=== PATIENT | female | born 1940 | race Hispanic/Latino ===

== ENCOUNTER 2023-01-05 15:52 | Emergency (ER) | payer OTHER ==
--- NOTE | 2023-01-05 16:33 | RAD REPORT ---
EXAM DESCRIPTION: CT - Ct Stroke Brain Wo Cont - 01/05/2023 4:20 pm CLINICAL HISTORY: STROKE ALERT COMPARISON: No comparisons TECHNIQUE: Noncontrast head CT images ad were obtained without IV contrast. Multiplanar reformats we re generated and reviewed. All CT scans are performed using dose optimization technique as appropriate and may include automated exposure control or mA/KV adjustment according to patient size. FINDINGS: A right frontal parasagittal ellipsoid intraparenchymal hemorrhage, measuring 2.5 x 4.7 x 4.5 cm in greatest transverse cc, and AP dimensions. Adjacent cytotoxic edema anteriorly and inferior ly. Limited extension of subarachnoid hemorrhage along the parasagittal frontal and cingulate sulci. Suggestion of trace parafalcine hematoma more posteriorly measuring 2-3 millimeter in thickness. Focal mass effect upon the adjacent sulci, with leftward of the septum pellucidum approximately 4 mil limeter. Midline structures are otherwise unremarkable. Mild diffuse parenchymal volume loss. Mild periventricular and deep white matter hypodensities elsewh ere, nonspecific, but suggestive of chronic small vessel ischemic changes. Allen-white matter differentiation is otherwise preserved, without evidence of acute infarct. No abnor mal extra-axial fluid collections. Mastoid air cells and visualized portions of the paranasal sinuses are clear. No acute bony findings. IMPRESSION: Right frontal parasagittal multi compartment hemorrhage with a dominant right intraparen chymal hematoma measuring up to 31 mL in volume. Focal mass-effect upon the adjacent sulci but leftwa rd bowing of the septum pellucidum by approximately 4 millimeter. Given the possible frontal lobe, th erefore peripheral, origin of the hemorrhage, but underlying mass, or cerebral amyloid angiopathy alla uld be considered as possible etiologies. Chronic findings including mild diffuse parenchymal volume loss and presumed chronic small vessel isc hemic changes as above. The findings were communicated to Tim Allan on 01/05/2023 at 16: 23 hours.
[2023-01-05 16:34] LABS: Absolute Lymphocytes (CBC) 1.7 K/uL (0.7-4.9); Hematocrit 40.2 % (36.0-45.0); Lymphocytes % 18.5 % (15.3-44.8); MCV 91.9 fL (80-100); MPV 7.3 fL (7.6-11.3); Platelets 261 thou/uL (152-406); RBC Red Blood Cell Count 4.38 M/uL (3.86-4.86)
[2023-01-05 16:36] LABS: Protime INR 1.02
[2023-01-05] MEDS ORDERED: LEVETIRACETAM 500 MG/5 ML VIAL IV ONE (16:37)
[2023-01-05] MEDS ORDERED: FOLIC ACID 5 MG/ML VIAL ONE (16:38)
[2023-01-05] MEDS ORDERED: NA CHLORIDE 0.9% 1,000 ML ONE (16:38)
[2023-01-05 16:52] LABS: Albumin 3.6 g/dL (3.4-5.0); Bilirubin Direct 0.1 mg/dL (0-0.2); Bilirubin Indirect, Calculated 0.3 mg/dL (0.2-0.8); Bilirubin Total 0.4 mg/dL (0.2-1.0); Magnesium 2.7 mg/dL (1.6-2.4); Potassium 3.5 mEq/L (3.5-5.1); Protein, Total 7.7 g/dL (6.4-8.2)
--- NOTE | 2023-01-05 17:03 | ER ---
Nurse's Notes [facility] Name: Yenni Lima Age: 82 yrs Sex: Female : 1940 Arrival Date: 01/05/2023 Time: 15:52 Bed 20 Private MD: Diagnosis: Aphasia;Essential (primary) hypertension;Nontraumatic intracerebral hemorrhage in hemisphere, cortical-left frontal Presentation: 01/05 15:56 Method Of Arrival: Wheelchair aa5 15:56 Chief complaint: Pt's granddaughter states "she just flew in from [place], [place] and I aa5 picked her up at 1:55pm and she was very confused and has not said a word to me". Left sided weakness noted, left facial droop noted, pt currently non-verbal, pt able to follow commands. Last known normal was today at 1030. Coronavirus screen: At this time, the client does not indicate any symptoms associated with coronavirus-19. Ebola Screen: Patient denies travel to an Ebola-affected area in the 21 days before illness onset. An acute neurological deficit is present. Pre-hospital glucose is not applicable to this patient. Initial Sepsis Screen: Does the patient meet any 2 criteria? No. Patient's initial sepsis screen is negative. Does the patient have a suspected source of infection? No. Patient's initial sepsis screen is negative. Risk Assessment: Do you want to hurt yourself or someone else? Unable to obtain. Onset of symptoms was January 05, 2023. 15:56 Acuity: DESHAWN 2 aa5 Triage Assessment: 17:19 The onset of the patients symptoms was January 05, 2023 at 10:30. kc6 Stroke Activation: Symtpom onset >3 hours and < 6 hours Physician: Stroke Attending; Name: ; Notified At: ; Arrived At: Physician: Chief Stroke Resident; Name: ; Notified At: ; Arrived At: Physician: Stroke Resident; Name: ; Notified At: ; Arrived At: Physician: ED Attending; Name: ; Notified At: ; Arrived At: Physician: ED Resident; Name: ; Notified At: ; Arrived At: Historical: - Allergies: 15:56 No Known Allergies; aa5 - PMHx: 15:56 Hypertensive disorder; Pt's family is poor historian; aa5 - Immunization history:: Adult Immunizations unknown. - Social history:: Smoking status: unknown. Screenin:09 [facility] [place] ED Fall Risk Assessment (Adult) History of falling in the last 3 months, kc6 including since admission No falls in past 3 months (0 pts) Confusion or Disorientation Yes (5 pts) Intoxicated or Sedated No (0 pts) Impaired Gait Yes (1 pt) Mobility Assist Device Used No (0 pt) Altered Elimination No (0 pt) Score/Fall Risk Level 3 or more points = High Risk. Abuse screen: Denies threats or abuse. Denies injuries from another. Nutritional screening: No deficits noted. Tuberculosis screening: No symptoms or risk factors identified. Assessment: 16:09 VAN Scoring: Arm Drift: Minor drift Visual Disturbance: No visual disturbance noted. kc6 Aphasia: Expressive aphasia noted. Provider notified of +VAN scoring. Neglect: No neglect noted. Linh Swallow Protocol Brief Cognitive Screen What is your name? Abnormal: unable to express words. Where are you right now? Abnormal: unable to express words. What year is it? Abnormal: unable to express words. Result: FAIL. TNKase (Tenecteplase) Screening: Contraindications: Active peripheral bleeding/history of intracranial bleeding: Yes. General: Appears in no apparent distress. comfortable, Behavior is calm, cooperative, appropriate for age. Pain: Unable to use pain scale. Patient is disoriented. Does not appear to understand pain scale. FLACC scale score is 0 out of 10. Neuro: Level of Consciousness is awake, alert, obeys commands, Oriented to none Center Rep are weak on left Moves all extremities. Weakness in left hand(s) arm(s) leg(s) foot/feet Gait is unsteady, Speech is normal, Facial droop on left, Pupils are PERRLA, Intact. Cardiovascular: Heart tones S1 S2 present Capillary refill < 3 seconds Rhythm is sinus rhythm. Respiratory: Airway is patent Trachea midline Respiratory effort is even, unlabored, Respiratory pattern is regular, symmetrical. GI: No signs and/or symptoms were reported involving the gastrointestinal system. : No signs and/or symptoms were reported regarding the genitourinary system. EENT: No signs and/or symptoms were reported regarding the EENT system. Derm: No signs and/or symptoms reported regarding the dermatologic system. Skin is intact, is healthy with good turgor, Skin is pink, warm \\T\\ dry. Musculoskeletal: No signs and/or symptoms reported regarding the musculoskeletal system. Circulation, motion, and sensation intact. Capillary refill < 3 seconds, Range of motion: intact in all extremities. 16:32 Reassessment: No changes from previously documented assessment. ll1 17:09 Reassessment: Patient appears in no apparent distress at this time. No changes from kc6 previously documented assessment. Patient and/or family updated on plan of care and expected duration. Pain level reassessed. Vital Signs: 15:56 BP 126 / 74; Pulse 70; Resp 16 S; Temp 98(TE); Pulse Ox 98% on R/A; aa5 16:45 BP 137 / 58; Pulse 71; Resp 20 S; Pulse Ox 99% on R/A; kc6 17:17 BP 148 / 66; Pulse 63; Resp 18 S; Pulse Ox 99% on R/A; kc6 Rachell Coma Score: 16:56 Eye Response: spontaneous(4). Motor Response: obeys commands(6). Verbal Response: dm confused(4). Total: 14. NIH Stroke Scale Scores: 16:09 NIHSS Score: 8 kc6 16:56 NIHSS Score: 4 dm ED Course: 15:53 Patient arrived in ED. im 15:58 Tim Allan MD is Attending Physician. dm 15:58 Arm band placed on Patient placed in an exam room, on a stretcher. ll1 16:09 Patient has correct armband on for positive identification. Placed in gown. Bed in low kc6 position. Call light in reach. Side rails up X2. Adult w/ patient. Seizure precautions initiated. Client placed on continuous cardiac and pulse oximetry monitoring. NIBP monitoring applied. child monitor on. 16:12 Triage completed. aa5 16:19 Stephanie Moyer, RYLIE is Primary Nurse. kc6 16:21 CT Stroke Brain w/o Contrast In Process Unspecified. EDMS 16:26 Inserted saline lock: 18 gauge in left antecubital area, using aseptic technique. Blood kc6 collected. Patient maintains SpO2 saturation greater than 95% on room air. 16:45 XRAY Chest (1 view) In Process Unspecified. EDMS 17:09 Urinalysis w/ reflexes Sent. kc6 17:19 No provider procedures requiring assistance completed. Patient transferred, IV remains kc6 in place. Administered Medications: 16:31 Drug: foLIC Acid IVPB 1 mg IVPB once Route: IVPB; Site: left antecubital; ll1 17:18 Follow up: Response: No adverse reaction; IV Status: Infusion continued upon transfer; kc6 IV Intake: 1000ml 16:31 Drug: NS 0.9% IV 1000 ml IV at 1 bolus Per protocol; 1000 mL bolus Route: IV; Rate: 1 ll1 bolus; Site: left antecubital; 17:19 Follow up: Response: No adverse reaction; IV Status: Infusion continued upon transfer; kc6 IV Intake: 1000ml 16:31 Drug: Keppra IV 1000 mg IV at per protocol once Route: IV; Rate: per protocol; Site: ll1 left antecubital; 17:18 Follow up: Response: No adverse reaction; IV Status: Infusion continued upon transfer; kc6 IV Intake: 1000ml 17:05 Drug: Decadron - Dexamethasone IVP 10 mg IVP once Route: IVP; Site: left antecubital; 6 17:19 Follow up: Response: No adverse reaction kc6 Medication: 17:19 VIS not applicable for this client. kc6 Point of Care Testing: Blood Glucose: 16:08 Blood Glucose: 109 mg/dL; kc6 Ranges: Intake: 17:18 IV: 1000ml; Total: 1000ml. kc6 17:18 IV: 1000ml; Total: 2000ml. kc6 17:19 IV: 1000ml; Total: 3000ml. kc6 Outcome: 17:03 ER care complete, transfer ordered by . [facility] 17:19 Transferred by helicopter to [facility], Transfer form completed. kc6 Note: report called to RYLIE Perez. pt transferred via [employer] 17:19 Condition: stable 17:19 Instructed on the need for transfer, 17:20 Patient left the ED. kc6 NIH Stroke Scale - NIH Stroke Score Date: 01/05/2023 Time: 16:09 Total Score = 8 10. Dysarthria (speech clarity - read or repeat words) - 0(Normal) 11. Extinction and Inattention (visual/tactile/auditory/spatial/personal) - 0(No abnormality) 1a. Level of Consciousness (LOC) - 0(Alert) 1b. Level of Consciousness (LOC) (Month \\T\\ Age) - 2(Neither) 1c. LOC Commands (Open \\T\\ Closes Eyes/Echo Technician) - 0(Both) 2. Best Gaze (Lateral Gaze Paresis) - 0(Normal) 3. Visual Field Loss - 0(No visual loss) 4. Facial Palsy - 1(Minor Paralysis) 5a. Left Arm: Motor (10-second hold) - 1(Drift) 5b. Right Arm: Motor (10-second hold) - 0(No drift) 6a. Left Leg: Motor (5-second hold - always test supine) - 1(Drift) 6b. Right Leg: Motor (5-second hold - always test supine) - 0(No drift) 7. Limb Ataxia (finger/nose \\T\\ heel/bo - test with eyes open) - 1(Present in one limb) 8. Sensory Loss (pinprick arms/legs/face) - 0(Normal) 9. Best Language: Aphasia (description/naming/reading) - 2(Severe aphasia) Initials: kc6 NIH Stroke Scale - NIH Stroke Score Date: 01/05/2023 Time: 16:56 Total Score = 4 10. Dysarthria (speech clarity - read or repeat words) - 1(Mild to Moderate) 11. Extinction and Inattention (visual/tactile/auditory/spatial/personal) - 0(No abnormality) 1a. Level of Consciousness (LOC) - 0(Alert) 1b. Level of Consciousness (LOC) (Month \\T\\ Age) - 0(Both) 1c. LOC Commands (Open \\T\\ Closes Eyes/Echo Technician) - 0(Both) 2. Best Gaze (Lateral Gaze Paresis) - 0(Normal) 3. Visual Field Loss - 0(No visual loss) 4. Facial Palsy - 1(Minor Paralysis) 5a. Left Arm: Motor (10-second hold) - 0(No drift) 5b. Right Arm: Motor (10-second hold) - 0(No drift) 6a. Left Leg: Motor (5-second hold - always test supine) - 0(No drift) 6b. Right Leg: Motor (5-second hold - always test supine) - 0(No drift) 7. Limb Ataxia (finger/nose \\T\\ heel/bo - test with eyes open) - 0(Absent) 8. Sensory Loss (pinprick arms/legs/face) - 0(Normal) 9. Best Language: Aphasia (description/naming/reading) - 2(Severe aphasia) Initials: dm Signatures: Dispatcher [employer] Tim Tavares MD MD cha Calderon, Audri, RN RN aa5 Jason Oden RN RN ll1 Stephanie Moyer RN RN kc6 Susy Del Rio
--- NOTE | 2023-01-05 17:03 | EDPHYS ---
Physician Documentation [facility] Name: Yenni Lima Age: 82 yrs Sex: Female : 1940 Arrival Date: 01/05/2023 Time: 15:52 Bed 20 Private MD: ED Physician Tim Allan HPI: 01/05 16:53 This 82 yrs old Female presents to ER via Wheelchair with complaints of Facial dm Droop. 16:53 The patient presents to the emergency department with weakness of the. dm Historical: - Allergies: 15:56 No Known Allergies; aa5 - PMHx: 15:56 Hypertensive disorder; Pt's family is poor historian; aa5 - Immunization history:: Adult Immunizations unknown. - Social history:: Smoking status: unknown. ROS: 16:55 Constitutional: Negative for fever, chills, and weight loss, Eyes: Negative for injury, dm pain, redness, and discharge, ENT: Negative for injury, pain, and discharge, Neck: Negative for injury, pain, and swelling, Cardiovascular: Negative for chest pain, palpitations, and edema, Respiratory: Negative for shortness of breath, cough, wheezing, and pleuritic chest pain, Abdomen/GI: Negative for abdominal pain, nausea, vomiting, diarrhea, and constipation, Back: Negative for injury and pain, : Negative for injury, bleeding, discharge, and swelling, MS/Extremity: Negative for injury and deformity, Skin: Negative for injury, rash, and discoloration, Psych: Negative for depression, anxiety, suicide ideation, homicidal ideation, and hallucinations, Allergy/Immunology: Negative for hives, rash, and allergies, Endocrine: Negative for neck swelling, polydipsia, polyuria, polyphagia, and marked weight changes, Hematologic/Lymphatic: Negative for swollen nodes, abnormal bleeding, and unusual bruising, 16:55 Neuro: Positive for Exam: 16:56 Constitutional: This is a well developed, well nourished patient who is awake, alert, dm and in no acute distress. Head/Face: Normocephalic, atraumatic. Eyes: Pupils equal round and reactive to light, extra-ocular motions intact. Lids and lashes normal. Conjunctiva and sclera are non-icteric and not injected. Cornea within normal limits. Periorbital areas with no swelling, redness, or edema. ENT: Nares patent. No nasal discharge, no septal abnormalities noted. Tympanic membranes are normal and external auditory canals are clear. Oropharynx with no redness, swelling, or masses, exudates, or evidence of obstruction, uvula midline. Mucous membranes moist. Neck: Trachea midline, no thyromegaly or masses palpated, and no cervical lymphadenopathy. Supple, full range of motion without nuchal rigidity, or vertebral point tenderness. No Meningismus. Chest/axilla: Normal chest wall appearance and motion. Nontender with no deformity. No lesions are appreciated. Cardiovascular: Regular rate and rhythm with a normal S1 and S2. No gallops, murmurs, or rubs. Normal PMI, no JVD. No pulse deficits. Respiratory: Lungs have equal breath sounds bilaterally, clear to auscultation and percussion. No rales, rhonchi or wheezes noted. No increased work of breathing, no retractions or nasal flaring. Abdomen/GI: Soft, non-tender, with normal bowel sounds. No distension or tympany. No guarding or rebound. No evidence of tenderness throughout. Back: No spinal tenderness. No costovertebral tenderness. Full range of motion. Female : Normal external genitalia. Skin: Warm, dry with normal turgor. Normal color with no rashes, no lesions, and no evidence of cellulitis. MS/ Extremity: Pulses equal, no cyanosis. Neurovascular intact. Full, normal range of motion. Psych: Awake, alert, with orientation to person, place and time. Behavior, mood, and affect are within normal limits. 16:56 Neuro: Orientation: to person, place, time, situation, Mentation: is normal, appropriate for stated age, no acute changes, Memory: unable to test, Cranial nerves: facial droop noted on left, Cerebellar function: is grossly normal, Motor: is normal, Sensation: is normal, Gait: not tested. seizure activity, is not displayed by the patient, 17:07 ECG was reviewed by the Attending Physician. dm Vital Signs: 15:56 BP 126 / 74; Pulse 70; Resp 16 S; Temp 98(TE); Pulse Ox 98% on R/A; aa5 16:45 BP 137 / 58; Pulse 71; Resp 20 S; Pulse Ox 99% on R/A; kc6 17:17 BP 148 / 66; Pulse 63; Resp 18 S; Pulse Ox 99% on R/A; kc6 NIH Stroke Scale Scores: 16:09 NIHSS Score: 8 kc6 16:56 NIHSS Score: 4 [facility] Coma Score: 16:56 Eye Response: spontaneous(4). Motor Response: obeys commands(6). Verbal Response: dm confused(4). Total: 14. MDM: 15:58 Patient medically screened. [facility] 16:56 Data reviewed: vital signs, nurses notes, lab test result(s), EKG, radiologic studies, dm CT scan, plain films. Consideration of Admission/Observation Escalation of care including admission/observation considered. Management of patient was discussed with the following: Patient Access Specialist: dr fermin, neuro. I considered the following discharge prescriptions or medication management in the emergency department Medications were administered in the Emergency Department. See MAR. Independent interpretation of the following test(s) in the Emergency Department EKG: See my EKG interpretation above. Test considered but Not performed: CT: cta head and neck. Historians other than the Patient: Family Member: daughter and grandaughter. Care significantly affected by the following chronic conditions: Hypertension. Counseling: I had a detailed discussion with the patient and/or guardian regarding the historical points, exam findings, and any diagnostic results supporting the discharge/admit diagnosis, the presence of at least one elevated blood pressure reading (>120/80) during this emergency department visit, radiology results, the need to transfer to another facility, for higher level of care, [facility] does not immediately have the required specialist. 01/05 16:04 Order name: Basic Metabolic Panel; Complete Time: 17:06 [facility] 01/05 16:04 Order name: CBC with Diff; Complete Time: 16:45 [facility] 01/05 16:04 Order name: LFT's; Complete Time: 17:06 [facility] 01/05 16:04 Order name: Magnesium; Complete Time: 17:06 [facility] 01/05 16:04 Order name: NT PRO-BNP; Complete Time: 17:06 [facility] 01/05 16:04 Order name: PT-INR; Complete Time: 16:45 [facility] 01/05 16:04 Order name: Troponin HS; Complete Time: 17:06 [facility] 01/05 16:04 Order name: Urinalysis w/ reflexes [facility] 01/05 16:20 Order name: Glucose, Ancillary Testing; Complete Time: 16:45 EDMS 01/05 16:27 Order name: Type And Screen [facility] 01/05 16:27 Order name: Ptt, Activated; Complete Time: 17:06 [facility] 01/05 16:04 Order name: XRAY Chest (1 view) [facility] 01/05 16:04 Order name: CT Stroke Brain w/o Contrast; Complete Time: 16:46 [facility] 01/05 16:04 Order name: EKG; Complete Time: 16:05 [facility] 01/05 16:04 Order name: Cardiac monitoring; Complete Time: 16:28 [facility] 01/05 16:04 Order name: EKG - Nurse/Tech; Complete Time: 16:28 [facility] 01/05 16:04 Order name: IV Saline Lock; Complete Time: 16:28 [facility] 01/05 16:04 Order name: Labs collected and sent; Complete Time: 16:28 [facility] 01/05 16:04 Order name: O2 Per Protocol; Complete Time: 16:19 [facility] 01/05 16:04 Order name: O2 Sat Monitoring; Complete Time: 16:19 [facility] 01/05 16:21 Order name: Seizure Precautions; Complete Time: 16:28 [facility] 01/05 16:21 Order name: Blood Pressure Recheck; Complete Time: 16:28 [facility] EC:07 Rate is 68 beats/min. Rhythm is regular. QRS Champion is Normal. PA interval is normal. QRS dm interval is normal. QT interval is normal. No Q waves. T waves are Normal. No ST changes noted. Clinical impression: NSR w/ Non-specific ST/T Changes and No evidence of ischemia. Interpreted by me. Reviewed by me. Administered Medications: 16:31 Drug: foLIC Acid IVPB 1 mg IVPB once Route: IVPB; Site: left antecubital; 1 17:18 Follow up: Response: No adverse reaction; IV Status: Infusion continued upon transfer; kc6 IV Intake: 1000ml 16:31 Drug: NS 0.9% IV 1000 ml IV at 1 bolus Per protocol; 1000 mL bolus Route: IV; Rate: 1 ll1 bolus; Site: left antecubital; 17:19 Follow up: Response: No adverse reaction; IV Status: Infusion continued upon transfer; kc6 IV Intake: 1000ml 16:31 Drug: Keppra IV 1000 mg IV at per protocol once Route: IV; Rate: per protocol; Site: [facility] left antecubital; 17:18 Follow up: Response: No adverse reaction; IV Status: Infusion continued upon transfer; kc6 IV Intake: 1000ml 17:05 Drug: Decadron - Dexamethasone IVP 10 mg IVP once Route: IVP; Site: left antecubital; kc6 17:19 Follow up: Response: No adverse reaction kc6 Point of Care Testing: Blood Glucose: 16:08 Blood Glucose: 109 mg/dL; kc6 Ranges: Critical Glucose Levels:Adult <50 mg/dl or >400 mg/dl <40 mg/dl or >180 mg/dl Disposition Summary: 01/05/23 17:03 Transfer Ordered Notes: Transfer Location: [facility] dm Reason: Higher level of care dm Condition: Serious dm Problem: new dm Symptoms: are unchanged dm Accepting Physician: arely fermin, neuro icu(01/05/23 17:20) kc6 Diagnosis - Aphasia dm - Essential (primary) hypertension dm - Nontraumatic intracerebral hemorrhage in hemisphere, cortical - left frontal dm Forms: - Medication Reconciliation Form dm - SBAR form dm NIH Stroke Scale - NIH Stroke Score Date: 01/05/2023 Time: 16:09 Total Score = 8 10. Dysarthria (speech clarity - read or repeat words) - 0(Normal) 11. Extinction and Inattention (visual/tactile/auditory/spatial/personal) - 0(No abnormality) 1a. Level of Consciousness (LOC) - 0(Alert) 1b. Level of Consciousness (LOC) (Month \T\ Age) - 2(Neither) 1c. LOC Commands (Open \T\ Closes Eyes/Leather Belt Loop Cutter) - 0(Both) 2. Best Gaze (Lateral Gaze Paresis) - 0(Normal) 3. Visual Field Loss - 0(No visual loss) 4. Facial Palsy - 1(Minor Paralysis) 5a. Left Arm: Motor (10-second hold) - 1(Drift) 5b. Right Arm: Motor (10-second hold) - 0(No drift) 6a. Left Leg: Motor (5-second hold - always test supine) - 1(Drift) 6b. Right Leg: Motor (5-second hold - always test supine) - 0(No drift) 7. Limb Ataxia (finger/nose \T\ heel/bo - test with eyes open) - 1(Present in one limb) 8. Sensory Loss (pinprick arms/legs/face) - 0(Normal) 9. Best Language: Aphasia (description/naming/reading) - 2(Severe aphasia) Initials: 6 NIH Stroke Scale - NIH Stroke Score Date: 01/05/2023 Time: 16:56 Total Score = 4 10. Dysarthria (speech clarity - read or repeat words) - 1(Mild to Moderate) 11. Extinction and Inattention (visual/tactile/auditory/spatial/personal) - 0(No abnormality) 1a. Level of Consciousness (LOC) - 0(Alert) 1b. Level of Consciousness (LOC) (Month \T\ Age) - 0(Both) 1c. LOC Commands (Open \T\ Closes Eyes/Leather Belt Loop Cutter) - 0(Both) 2. Best Gaze (Lateral Gaze Paresis) - 0(Normal) 3. Visual Field Loss - 0(No visual loss) 4. Facial Palsy - 1(Minor Paralysis) 5a. Left Arm: Motor (10-second hold) - 0(No drift) 5b. Right Arm: Motor (10-second hold) - 0(No drift) 6a. Left Leg: Motor (5-second hold - always test supine) - 0(No drift) 6b. Right Leg: Motor (5-second hold - always test supine) - 0(No drift) 7. Limb Ataxia (finger/nose \T\ heel/bo - test with eyes open) - 0(Absent) 8. Sensory Loss (pinprick arms/legs/face) - 0(Normal) 9. Best Language: Aphasia (description/naming/reading) - 2(Severe aphasia) Initials: [facility] Signatures: Dispatcher [employer] EDMS Tim Allan MD MD cha Calderon, Audri, RN RN aa5 Jason Oden, RN RN ll1 Stephanie Moyer RN RN kc6 Corrections: (The following items were deleted from the chart) 16:38 16:05 MR STROKE PROTOCOL+MRI.RAD.BRZ ordered. EDMS EDMS 16:56 16:05 Head Angio+CT.RAD.BRZ ordered. EDMS EDMS 17:09 16:05 Neck Angio+CT.RAD.BRZ ordered. EDMS EDMS 17:20 17:[address] fermin, neuro [place] [place] [id number]
[2023-01-05] MEDS ORDERED: dexAMETHasone 10 MG/ML VIAL ONE (17:08)
[2023-01-05 17:14] LABS: Specific Gravity 1.007 (1.005-1.030); Urine Bilirubin NEGATIVE (Negative); Urine Blood Negative (Negative); Urine Clarity Clear (Clear); Urine Color Light-Yellow (Yellow); Urine Glucose NEGATIVE (Negative); Urine Protein NEGATIVE (Negative); Urine Urobilinogen Normal (Normal); Urine pH 6.5 (5.0-7.0)
[2023-01-05 17:24] VITALS: TEMP 98
[2023-01-05 17:25] VITALS: O2SAT 99
[2023-01-05 17:27] VITALS: BP 148/66
--- NOTE | 2023-01-05 17:50 | RAD REPORT ---
EXAM DESCRIPTION: Alejandro Single View01/05/2023 4:43 pm CLINICAL HISTORY: COUGH COMPARISON: No comparisons TECHNIQUE: Portable AP view of the chest. FINDINGS: The right lung is clear. Left retrocardiac streaky airspace opacities, could reflect atele ctasis or airspace disease. No pneumothorax or effusion. The cardiomediastinal contours are unremark able. IMPRESSION: Left retrocardiac streaky opacities, could reflect atelectasis or airspace disease.
--- NOTE | 2023-01-06 15:14 | EKG ---
Test Date: 2023-01-05 Test Time: 16:30:06 Privacy Specialist: NEVIN MEASUREMENT RESULTS: Intervals: Rate: 68 [place]: QRSD: 76 QT: 400 QTc: 425 [place]: P: [place]: QRS: 75 T: 60 INTERPRETIVE STATEMENTS: Accelerated Junctional rhythm Nonspecific ST and T wave abnormality Abnormal ECG No previous ECG available for comparison Electronically Signed On 01-06-23 15:10:57 COURT MANAGER by Henry Walden
== END 2023-01-05 17:20 | disposition short-term general hospital (02) ==
LOC: ER 15:52
DX: I61.1 Nontraumatic intracerebral hemorrhage in hemisphere, cortical (principal); I10 Essential (primary) hypertension; R29.708 NIHSS score 8
CPT/HCPCS: 96365; 96368; 93005; 85025; 80048; 36415; 86900; 83735; 86850; 85610; 86901; 82947; 80076; 85730; 81003; 84484; 83880; 70450; 71045; 96375; 99285; J1953; J1100; J7030

== ENCOUNTER 2024-04-19 10:27 | Emergency (ER) | payer OTHER ==
[2024-04-19 11:10] LABS: Absolute Basophils 0.1 K/uL (0-0.5); Absolute Eosinophils 0.2 K/uL (0-0.5); Absolute Lymphocytes (CBC) 1.1 K/uL (0.7-4.9); Absolute Monocytes 0.8 K/uL (0.1-1.3); Basophils % 1.2 % (0-1.3); Eosinophils % 3.3 % (0-4.4); Hemoglobin 13.3 g/dL (12.0-15.0); Lymphocytes % 18.4 % (15.3-44.8); MCH 31.9 pg (27.0-35.0); MCHC 34.1 g/dL (32.0-36.0); MCV 93.7 fL (80-100); MPV 7.8 fL (7.6-11.3); Monocytes % 12.6 % (3.3-12.3); Neutrophils % 64.5 % (41.7-73.7); Platelets 248 thou/uL (152-406); RBC Red Blood Cell Count 4.16 M/uL (3.86-4.86); Red Cell Distribution Width 13.4 % (12.1-15.2)
[2024-04-19 11:23] LABS: Influenza A Ag Negative; Influenza B Ag Negative; SARS-CoV-2 Antigen Rapid Res Negative (Negative)
[2024-04-19 12:06] LABS: Anion Gap 5.8 mEq/L (5.0-15.0); Potassium 3.8 mEq/L (3.5-5.1); Troponin High Sensitivity 6.2 pg/mL (<58.9)
--- NOTE | 2024-04-19 12:20 | RAD REPORT ---
EXAMINATION: ONE VIEW CHEST XR CLINICAL INDICATION: Female, 83 years old.,Cough;Chest pain TECHNIQUE: Frontal chest projection is submitted. Examination is limited by patient positioning and t echnique. COMPARISON: 01/05/2023 FINDINGS: The lungs are well inflated and clear. No pneumothorax or sizable effusion. The heart is normal in s ize. Mediastinal contours are unremarkable. IMPRESSION: No acute intrathoracic abnormalities.
--- NOTE | 2024-04-19 13:05 | EDPHYS ---
Physician Documentation [facility] Name: Yenni Lima Age: 83 yrs Sex: Female : 1940 Arrival Date: 04/19/2024 Time: 10:27 Bed 2 Private MD: ED Physician Hiren Salmeron HPI: 04/19 12:12 This 83 yrs old Female presents to ER via Ambulatory with complaints of Chest rn Pain, Cough. 12:12 The patient or guardian reports chest pain that is located primarily in the anterior rn chest wall, left. Onset: 2 day(s) ago. The pain does not radiate. The chest pain is described as sharp. Severity of pain: At its worst the pain was mild in the emergency department the pain is unchanged. The patient has not experienced similar symptoms in the past. Patient reports left-sided chest pain, worse with cough and palpation of the left chest. No radiation. No shortness of breath. Also reports left-sided chest pain when moving left arm. No hemoptysis. No history of DVT or PE. No trauma.. Historical: - Allergies: 11:05 No Known Allergies; cm10 - Home Meds: 11:05 Simvastatin Oral [Active]; amlodipine oral [Active]; cm10 - PMHx: 11:05 Hypertensive disorder; Pt's family is poor historian; cm10 - Immunization history:: Adult Immunizations up to date. - Infectious Disease History:: Denies. - Social history:: Smoking status: Patient denies any tobacco usage or history of. - Family history:: not pertinent. - Hospitalizations: : No recent hospitalization is reported. ROS: 12:12 Constitutional: Negative for fever, chills, and weight loss, Cardiovascular: Positive rn for left-sided chest pain Respiratory: Positive for cough and pleuritic chest pain on the left side Abdomen/GI: Negative for abdominal pain, nausea, vomiting, diarrhea, and constipation, Back: Negative for injury and pain, MS/Extremity: Negative for injury and deformity, Neuro: Negative for headache, weakness, numbness, tingling, and seizure, Exam: 12:12 Constitutional: This is a well developed, well nourished patient who is awake, alert, rn and in no acute distress. Chest/axilla: Reproducible left anterior outer chest wall tenderness without crepitus or skin changes or swelling Cardiovascular: Regular rate and rhythm. No pulse deficits. Respiratory: No increased work of breathing, no retractions or nasal flaring. Abdomen/GI: Soft, non-tender 15:56 ECG was reviewed by the Attending Physician. rn Vital Signs: 11:01 BP 142 / 69; Pulse 69; Resp 20; Temp 97.8; Pulse Ox 96% ; Weight 69.4 kg; Height 5 ft. cm10 3 in. ; Pain 0/10; 11:30 BP 125 / 63; Pulse 66; Resp 15; Pulse Ox 95% on R/A; cm10 12:00 BP 112 / 61; Pulse 65; Resp 15; Pulse Ox 96% ; cm10 12:30 BP 133 / 66; Pulse 65; Resp 15; Pulse Ox 94% ; cm10 13:40 BP 121 / 58; Pulse 65; Resp 15; Pulse Ox 98% ; cm10 11:01 Body Mass Index 27.10 (69.40 kg, 160.02 cm) cm10 11:01 Pain Scale: Adult cm10 MDM: 10:31 Medical Screening Exam initiated rn 13:03 Differential diagnosis: acute myocardial infarction, acute pericarditis, anxiety, rn coronary artery disease chest wall pain, costochondritis, gastroesophageal reflux disease (GERD), pleurisy, pneumonia, pneumothorax. HEART Score: History: Slightly Suspicious (0), ECG: Normal (0), Age: < or = 45 years (0), Risk Factors: 1 or 2 risk factors (1), Troponin: < or = 1 x Normal Limit (0), Total Score = 1. Data reviewed: vital signs, nurses notes, lab test result(s), EKG, radiologic studies, plain films, and as a result, I will discharge patient. Counseling: I had a detailed discussion with the patient and/or guardian regarding the historical points, exam findings, and any diagnostic results supporting the discharge/admit diagnosis, lab results, radiology results, the need for outpatient follow up, to return to the emergency department if symptoms worsen or persist or if there are any questions or concerns that arise at home. Special discussion: Based on the patient's history, exam, and Dx evaluation, there is no indication for emergent intervention or inpatient Tx. It is understood by the patient/guardian that if the Sx's persist or worsen they need to return immediately for re-evaluation. I discussed with the patient/guardian in detail that at this point there is no indication for admission to the hospital. It is understood, however, that if the symptoms persist or worsen the patient needs to return immediately for re-evaluation. Based on the history and exam findings, there is no indication for further emergent testing or inpatient evaluation. I discussed with the patient/guardian the need to see the primary care provider for further evaluation of the symptoms. ED course: Patient has not had chest pain since prior to arrival. Pain is sharp and stabbing on left side when he coughs and with movement. Does not sound cardiac in nature. ECG without ischemia. Troponin negative. BNP negative. Chest x-ray negative. Will discharge home with antibiotics given productive cough and left-sided chest pain have coincided and likely related.. 04/19 10:50 Order name: Basic Metabolic Panel; Complete Time: 12:04/19 10:50 Order name: CBC with Diff; Complete Time: 11:04/19 10:50 Order name: NT PRO-BNP; Complete Time: 12:04/19 10:50 Order name: Troponin HS; Complete Time: 12:04/19 10:50 Order name: COVID-19 Ag + Flu A+B Ag; Complete Time: 11:57 04/19 10:32 Order name: XRAY Chest (1 view); Complete Time: 12:21 04/19 10:50 Order name: EKG; Complete Time: 10:50 04/19 10:50 Order name: Cardiac monitoring; Complete Time: 11:00 04/19 10:50 Order name: EKG - Nurse/Tech; Complete Time: 10:58 04/19 10:50 Order name: IV Saline Lock; Complete Time: 11:04/19 10:50 Order name: Labs collected and sent; Complete Time: 11:04/19 10:50 Order name: O2 Per Protocol; Complete Time: :04/19 10:50 Order name: O2 Sat Monitoring; Complete Time: 11:04/19 11:11 Order name: Labs - recollect needed: green; Complete Time: 11:40 bc6 EC:56 Rate is 70 beats/min. Rhythm is regular. QRS [place] is Normal. [place] interval is normal. QRS rn interval is normal. QT interval is normal. No Q waves. T waves are Normal. No ST changes noted. Clinical impression: NSR w/ Non-specific ST/T Changes. Interpreted by me. Reviewed by me. Administered Medications: No medications were administered Disposition Summary: 04/19/24 13:05 Discharge Ordered Notes: Location: Home rn Problem: new rn Symptoms: have improved rn Condition: Stable rn Diagnosis - Chest pain, unspecified rn - Cough rn Followup: rn - With: Private Physician - When: As needed - Reason: Recheck today's complaints, Re-evaluation by your physician Discharge Instructions: - Discharge Summary Sheet rn - Nonspecific Chest Pain, Adult rn - Pain Without a Known Cause rn - Cough, Adult rn Forms: - Medication Reconciliation Form rn - Antibiotic wellness nurse rn - Prescription Opioid Use rn - Patient Portal Instructions rn - Leadership Thank You Letter rn Prescriptions: - Augmentin 875-125 mg Oral Tablet - take 1 tablet ORAL route every 12 hours for 10 days; 20 tablet; Refills: 0, rn Product Selection Permitted - Zithromax Z-Jhony 250 mg Oral Tablet - take 1 tablet ORAL route as directed for 5 days Day 1 - take two (2) tablets rn one time. Day 2, 3, 4 , 5 take one (1) tablet once daily.; 6 tablet; Refills: 0, Product Selection Permitted Signatures: Dispatcher [employer] EDMS Hiren Salmeron MD MD rn [place]son, Breana 6 Jenny Choudhury RN RN cm10 Corrections: (The following items were deleted from the chart) 10:50 10:50 BASIC METABOLIC PANEL+C.LAB.BRZ ordered. EDMS EDMS 10:50 10:50 CBC+H.LAB.BRZ ordered. EDMS EDMS 10:50 10:50 PROBNP+C.LAB.BRZ ordered. EDMS EDMS 10:50 10:50 Troponin High Sensitivity+C.LAB.BRZ ordered. EDMS EDMS 10:50 10:50 COVID-19 Ag + Flu A+B Ag+I.LAB.BRZ ordered. EDMS EDMS
--- NOTE | 2024-04-19 13:05 | ER ---
Nurse's Notes [facility] Name: Yenni Lima Age: 83 yrs Sex: Female : 1940 Arrival Date: 04/19/2024 Time: 10:27 Bed 2 Private MD: Diagnosis: Chest pain, unspecified;Cough Presentation: 04/19 11:03 Chief complaint: Patient states: Left sided chest pain onset 2 days ago. Pt states that cm10 the pain is constant and coughing makes the pain worse. PT states that she currently does not have pain. Coronavirus screen: Client denies travel out of the [place] in the last 14 days. Ebola Screen: Patient denies travel to an Ebola-affected area in the 21 days before illness onset. Initial Sepsis Screen: Does the patient meet any 2 criteria? No. Patient's initial sepsis screen is negative. Does the patient have a suspected source of infection? No. Patient's initial sepsis screen is negative. Risk Assessment: Do you want to hurt yourself or someone else? Patient reports no desire to harm self or others. Onset of symptoms was April 17, 2024. 11:03 Method Of Arrival: Ambulatory cm10 11:03 Acuity: DESHAWN 2 cm10 Triage Assessment: 11:08 General: Appears in no apparent distress. comfortable, Behavior is calm, cooperative. cm10 Pain: Denies pain. Neuro: No deficits noted. Level of Consciousness is awake, alert, obeys commands, Oriented to person, place, time, situation, Appropriate for age. Cardiovascular: Patient's skin is warm and dry. Chest pain is denied. Respiratory: No deficits noted. Airway is patent Respiratory effort is even, unlabored, Respiratory pattern is regular, symmetrical. Derm: No deficits noted. Skin is pink, warm \T\ dry. Historical: - Allergies: 11:05 No Known Allergies; cm10 - Home Meds: 11:05 Simvastatin Oral [Active]; amlodipine oral [Active]; cm10 - PMHx: 11:05 Hypertensive disorder; Pt's family is poor historian; cm10 - Immunization history:: Adult Immunizations up to date. - Infectious Disease History:: Denies. - Social history:: Smoking status: Patient denies any tobacco usage or history of. - Family history:: not pertinent. - Hospitalizations: : No recent hospitalization is reported. Screenin:08 [facility] ED Fall Risk Assessment (Adult) History of falling in the last 3 months, cm10 including since admission No falls in past 3 months (0 pts) Confusion or Disorientation No (0 pts) Intoxicated or Sedated No (0 pts) Impaired Gait No (0 pts) Mobility Assist Device Used No (0 pt) Altered Elimination No (0 pt) Score/Fall Risk Level 0 - 2 = Low Risk Oriented to surroundings, Maintained a safe environment, Hourly rounding (assess needs \T\ fall precautionary measures) done. Abuse screen: Denies threats or abuse. Denies injuries from another. Nutritional screening: No deficits noted. Tuberculosis screening: No symptoms or risk factors identified. Assessment: 12:19 Reassessment: Patient appears in no apparent distress at this time. Patient and/or cm10 family updated on plan of care and expected duration. Pain level reassessed. Patient is alert, oriented x 3, equal unlabored respirations, skin warm/dry/pink. 13:40 Reassessment: Patient appears in no apparent distress at this time. Patient and/or cm10 family updated on plan of care and expected duration. Pain level reassessed. Patient is alert, oriented x 3, equal unlabored respirations, skin warm/dry/pink. Pain: Denies pain. 13:41 Pain: Pain does not radiate. Pain began 2-3 days ago. cm10 Vital Signs: 11:01 BP 142 / 69; Pulse 69; Resp 20; Temp 97.8; Pulse Ox 96% ; Weight 69.4 kg; Height 5 ft. cm10 3 in. ; Pain 0/10; 11:30 BP 125 / 63; Pulse 66; Resp 15; Pulse Ox 95% on R/A; cm10 12:00 BP 112 / 61; Pulse 65; Resp 15; Pulse Ox 96% ; cm10 12:30 BP 133 / 66; Pulse 65; Resp 15; Pulse Ox 94% ; cm10 13:40 BP 121 / 58; Pulse 65; Resp 15; Pulse Ox 98% ; cm10 11:01 Body Mass Index 27.10 (69.40 kg, 160.02 cm) cm10 11:01 Pain Scale: Adult cm10 ED Course: 10:30 Patient arrived in ED. mr 10:31 Hiren Salmeron MD is Attending Physician. rn 10:40 Kei, Jenny, RN is Primary Nurse. cm10 10:58 Warm blanket given. Verbal reassurance given. am7 10:58 EKG done, by ED staff, reviewed by Hiren Salmeron MD. am7 11:00 Basic Metabolic Panel Sent. cm10 11:00 CBC with Diff Sent. cm10 11:00 NT PRO-BNP Sent. cm10 11:00 Troponin HS Sent. cm10 11:00 COVID-19 Ag + Flu A+B Ag Sent. cm10 11:00 Initial lab(s) drawn, by oh, sent to lab. COVID swab sent to lab. Inserted saline lock: cm10 20 gauge in left antecubital area, using aseptic technique. Blood collected. Flushed with 10 mL NS. 11:05 Triage completed. cm10 11:09 Patient has correct armband on for positive identification. Placed in gown. Bed in low cm10 position. Call light in reach. Side rails up X2. Client placed on continuous cardiac and pulse oximetry monitoring. NIBP monitoring applied. property assessment monitor on. 11:56 XRAY Chest (1 view) In Process Unspecified. EDMS 13:41 Provided Education on: Follow up instructions. cm10 13:41 Arm band placed on right wrist. cm10 13:41 No provider procedures requiring assistance completed. IV discontinued, intact, cm10 bleeding controlled, No redness/swelling at site. Pressure dressing applied. Patient maintains SpO2 saturation greater than 95% on room air. Administered Medications: No medications were administered Medication: 11:08 VIS not applicable for this client. cm10 Outcome: 13:05 Discharge ordered by . rn 13:40 Discharged to home ambulatory, with family, cm10 13:40 Condition: good 13:40 Discharge instructions given to patient, family, Instructed on discharge instructions, follow up and referral plans. medication usage, Demonstrated understanding of instructions, follow-up care, medications, Prescriptions given X 2, 13:41 Patient left the ED. cm10 Signatures: Dispatcher [employer] EDRI DelgadoSusan, Hiren Szymanski MD MD rn Martinez, Clarissa, RN RN cm10 Jessica Lorenzo am7 Corrections: (The following items were deleted from the chart) 13:31 13:30 BP 133 / 66; Pulse 156bpm; Resp 15bpm; Pulse Ox 94%; cm10 cm10 13:40 12:30 BP 133 / 66; Pulse 156bpm; Resp 15bpm; Pulse Ox 94%; cm10 cm10
[2024-04-19 13:46] VITALS: TEMP 97.8
[2024-04-19 13:50] VITALS: BP 121/58; O2SAT 98
== END 2024-04-19 13:41 | disposition home or self-care (01) ==
LOC: ER 10:27
DX: R07.9 Chest pain, unspecified (principal); R05.9 Cough, unspecified; I10 Essential (primary) hypertension; Z11.52 Encounter for screening for COVID-19
CPT/HCPCS: 36415; 71045; 80048; 83880; 84484; 85025; 87428; 93005; 99284